=== PATIENT | male | born 1990 | race Two or more races ===

== ENCOUNTER 2020-12-15 08:06 | Emergency (ER) | payer SELFPAY ==
[~2020-12-15] VITALS: Ht 165.1 cm; Wt 99.9 kg
--- NOTE | 2020-12-15 08:15 | NUR ---
EKG done in triage.
[2020-12-15] MEDS ORDERED: KETOROLAC 30 MG/1 ML IM ONE (08:30)
--- NOTE | 2020-12-15 08:33 | NUR ---
PT TO IMAGING
[2020-12-15] MEDS ORDERED: KETOROLAC 30 MG/1 ML ONE (09:20)
[2020-12-15 09:43] VITALS: BP 117/74
== END 2020-12-15 09:52 | disposition home or self-care (01) ==
LOC: ED 08:54
DX: R07.89 Other chest pain (principal)
CPT/HCPCS: 71046; 93005; 96372; 99283; J1885